=== PATIENT | female | born 1965 ===

== ENCOUNTER → 2016-11-27 | Outpatient (REF) | payer OTHER, SELFPAY ==
[2016-11-27 21:36] LABS: MICROSCOPIC INDICATED? MAN YES (NO)
[2016-11-27 22:46] LABS: BACTERIA, URINE NONE SEEN; HYALINE CAST, URINE NONE SEEN /lpf (0-1); MICROSCOPIC EXAM PERFORMED; RBC, URINE NONE SEEN /hpf (0-3); SQUAMOUS EPITHELIAL CELL URINE MOD AMOUNT /hpf (SMALL AMT); WBC, URINE 0-1 /hpf (0-3)
== END ==
LOC: M LAB REF 09:33
PROVIDERS: ATTEND Physician Assistant Medical
DX: N39.0 Urinary tract infection, site not specified (principal)